=== PATIENT | male | born 2005 | race Caucasian/White ===

== ENCOUNTER 2024-08-24 21:56 | Emergency (ER) | payer BC, SELFPAY ==
--- NOTE | ~2024-08-24 | CT_ITS ---
CLINICAL HISTORY: RLQ, RUQ tenderness R O appendicitis, biliary dise CT abdomen and pelvis with contrast Comparison: None Findings: The lung bases are clear. Moderate bilateral gynecomastia. Unremarkable gallbladder and solid organs. No urolithiasis. No bowel obstruction, pneumoperitoneum, or pneumatosis. Large amount of stool throughout the colon rectum. Mild rectal wall thickening. Normal appendix. Urinary bladder is underdistended. No acute fracture. IMPRESSION: Large amount of stool throughout the colon and rectum with mild rectal wall thickening concerning for stercoral colitis. Normal appendix and gallbladder. This document has been electronically signed by: Jd Mayes MD on 08/25/2024 01:30:21
[2024-08-24 22:02] VITALS: BP 129/91; PULSE 86; RESP 18; TEMP 36.8; O2SAT 98; BMI 28.0
[2024-08-24 22:28] LABS: MANUAL DIFF FLAG NO
[2024-08-24 22:30] LABS: Basophils Percent Auto 0.5 % (0-2); Eosinophils Absolute Auto 0.6 X10*3/uL (0.0-0.4); Eosinophils Percent Auto 6.9 % (0-4); Hematocrit 38.3 % (42.0-52.0); Hemoglobin 13.2 g/dl (14.0-18.0); Imm Gran Abs Auto 0.01 X10*3/uL (0.00-0.03); Imm Gran Pct Auto 0.1 % (0.0-0.4); Lymphocytes Absolute Auto 2.6 X10*3/uL (1.2-4.9); Lymphocytes Percent Auto 33.2 % (20-40); Mean Corpuscular HGB Conc 34.5 g/dl (31.0-36.0); Mean Corpuscular Hemoglobin 30.5 pg (27.0-33.0); Mean Corpuscular Volume 88.5 fL (80.0-98.0); Mean Platelet Volume 9.2 fL (9.4-12.4); Monocytes Absolute Auto 0.8 X10*3/uL (0.1-1.2); Monocytes Percent Auto 9.6 % (2-11); Neutrophils Absolute Auto 3.9 x10*3/uL (2.0-8.3); Neutrophils Percent Auto 49.7 % (45-73); Platelet Count 322 X10*3/uL (160-400); Red Blood Count 4.33 X10*6/uL (4.60-5.80); Red Cell Distribution Width 12.2 % (11.0-16.0); White Blood Count 7.9 X10*3/uL (4.8-10.8)
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
[2024-08-24 22:44] LABS: Alanine Aminotransferase 19 U/L (0-40); Albumin Level 4.5 g/dL (3.5-5.0); Alkaline Phosphatase 69 U/L (39-117); Anion Gap 14 (12-20); Aspartate Amino Transferase 22 U/L (5-37); Bilirubin Total 0.2 mg/dL (0.0-1.0); Blood Urea Nitrogen 14 mg/dL (9-16); Calcium 9.3 mg/dL (8.4-10.2); Carbon Dioxide 25 mmol/L (22-29); Chloride 108 mmol/L (96-108); Creatinine Clr Calc Pharmacy 183.8; Estimated Glomerular Filt Rate > 60; Glucose Random 108 mg/dL (60-115); Lipase 9 U/L (8-78); Sodium 143 mmol/L (135-145); Total Protein 7.2 g/dL (6.5-8.0)
[2024-08-24 23:06] LABS: Influenza A PCR NEGATIVE (Negative); Influenza B PCR NEGATIVE (Negative); Resp Syncy Virus RNA Qual PCR NEGATIVE (Negative); SARS COV2 PCR INHOUSE NEGATIVE (Negative)
--- NOTE | 2024-08-24 23:28 | ED.ABDPAIN ---
HPI - Abdominal Pain General Chief Complaint: Abdominal Pain Stated Complaint: stomach pain Time Seen by Provider: 08/24/24 23:04 Source: patient and family (Mother) Mode of arrival: ambulatory Limitations: no limitations History of Present Illness ED Provider: Dr. Abdirahman Shea HPI narrative: The patient uses the pronouns ?they? and ?them?. 18-year-old patient who presents emergency department for evaluation of stomach pain that came on suddenly at 20:30 hours, has been constant since onset, with waxing and waning intensity with maximum pain being 7/10 at its worse. Patient has associated nausea with no vomiting. The patient states that 2 days prior, they had a sore throat but this has not resolved. The patient denied fever, chills, rhinorrhea, cough, chest pain, diarrhea. The patient denied frequency, urgency or dysuria. According to the patient's mother, they have had chronic constipation since . The patient does not know when they last move your bowels but states that this pain that they are experiencing is different then their constipation pain. Patient was had no abdominal surgeries in the past. The patient is on estradiol and spironolactone. Related Data Allergies Allergy/AdvReac Type Severity Reaction Status Date / Time No Known Allergies Allergy Verified 08/24/24 22:02 Review of Systems Review of Systems Yes all other systems are reviewed and are negative [facility] Past Medical History [facility] Narrative: Social history: The patient denies tobacco and alcohol use. Patient was smokes marijuana occasionally. Social History Social History Alcohol intake: never Smoked in Last 30 Days: No Use of substances other than those prescribed or required for medical reasons: No Any prior treatment program specific to substance use: No Advance Directives: No Advance Directives Information Provided: No Do you have a plan to hurt others: No Plan Physical Exam ED Vital Signs: Vital Signs - 24 hr 08/24/24 22:02 08/25/24 00:00 08/25/24 01:39 Temperature 98.2 F 98.4 F 98.4 F Pulse Rate 86 84 84 Respiratory Rate 18 16 16 Blood Pressure 129/91 H 117/79 117/79 Pulse Oximetry 98 95 Oxygen Delivery Method Room Air Room Air BMI result Body Mass Index 28.0 Vital signs revealed an elevated blood pressure of 129/91 Exam: General: Awake, alert in no distress Head: Normocephalic, atraumatic EENT: PERRL, Lids normal, sclera normal, conjunctiva normal, nose normal , ears normal, throat without erythema or exudates Neck: Supple, no adenopathy Lung: breath sounds symmetric, no wheezing, rales or rhonchi Chest: symmetric movement, nontender Heart: regular rate and rhythm, normal S1, S2 no murmurs or rubs Abdomen: soft, moderate right upper quadrant tenderness with a negative Patrick sign, moderate to severe right lower quadrant tenderness, no rebound, no voluntary or involuntary guarding normoactive bowel sounds Back: no vertebral tenderness, moderate bilateral CVA tenderness Extremities: no deformities, moves all extremities symmetrically Neuro: Awake, alert, oriented, normal speech, cranial nerves intact, moves all extremities symmetrically Psych: Pleasant, cooperative Medical Decision Making Medical Decision Making MDM Narrative: 18-year-old patient who presents emergency department for evaluation of stomach pain that came on suddenly at 20:30 hours, has been constant since onset, with waxing and waning intensity with maximum pain being 7/10 at its worse. Patient has associated nausea with no vomiting. The patient states that 2 days prior, they had a sore throat but this has not resolved. The patient denied fever, chills, rhinorrhea, cough, chest pain, diarrhea. The patient denied frequency, urgency or dysuria. Vital signs revealed an elevated blood pressure. Abdominal exam revealed right upper and right lower quadrant tenderness. Differential diagnosis: ?Includes but is not limited to gastritis, pancreatitis, diverticulitis, biliary colic, appendicitis, anemia, electrolyte abnormalities Course: 23:38 My interpretation patient's laboratory evaluation as follows: CBC was normal. CMP was normal. Lipase was normal. COVID-19, RSV and influenza tests were negative. Given the patient's presentation abdominal exam I am concerned that the patient may have appendicitis versus biliary disease, therefore I ordered a CT scan of the abdomen pelvis with IV contrast. Patient was treated with normal saline IV x1 L, Zofran 4 mg IV and Toradol 15 mg IV 01:[address] scan abdomen pelvis IV contrast revealed a normal-appearing appendix but the patient does have a large stool burden with mild rectal wall thickening concerning for stercoral colitis. I did do a rectal exam on the patient and they are not impacted. Patient was given a soapsuds enema. Patient was discharged home and advised to restart there MiraLax once a day. Patient was also advised to take Colace 100 mg twice a day. If the patient does not have a bowel movement in 4 days they were advised to take extra-strength Senokot 2 tablets twice a day for 4 days. If the patient still is constipated they were advised to use a Fleet's enema. Patient was given printed and verbal instructions and discharged home. Admission/Observation Consideration of admission/observation: Escalation of care including admission/observation considered (Yes) Lab Data MDM Lab Attestation statement: I reviewed the patient's lab results. 08/24/24 22:21 08/24/24 22:21 Labs: Lab Results 08/24/24 08/25/24 Range/Units 22:21 01:42 WBC 7.9 (4.8-10.8) X10*3/uL RBC 4.33 L (4.60-5.80) X10*6/uL Hgb 13.2 L (14.0-18.0) g/dl Hct 38.3 L (42.0-52.0) % MCV 88.5 (80.0-98.0) fL MCH 30.5 (27.0-33.0) pg MCHC 34.5 (31.0-36.0) g/dl RDW 12.2 (11.0-16.0) % Plt Count 322 (160-400) X10*3/uL MPV 9.2 L (9.4-12.4) fL Immature Gran % (Auto) 0.1 (0.0-0.4) % Neut % (Auto) 49.7 (45-73) % Lymph % (Auto) 33.2 (20-40) % [place] % (Auto) 9.6 (2-11) % Eos % (Auto) 6.9 H (0-4) % Baso % (Auto) 0.5 (0-2) % Lymph # (Auto) 2.6 (1.2-4.9) X10*3/uL [place] # (Auto) 0.8 (0.1-1.2) X10*3/uL Eos # (Auto) 0.6 H (0.0-0.4) X10*3/uL Baso # (Auto) 0.0 (0.0-0.2) X10*3/uL Abs Immat Gran (auto) 0.01 (0.00-0.03) X10*3/uL Absolute Neuts (auto) 3.9 (2.0-8.3) x10*3/uL Absolute Nucleated RBC 0.000 (0.0-0.012) X10*3/uL Nucleated RBC % (auto) 0.0 (0.0-0.2) /100WBC Sodium 143 (135-145) mmol/L Potassium 4.0 (3.3-5.1) mmol/L Chloride 108 (96-108) mmol/L Carbon Dioxide 25 (22-29) mmol/L Anion Gap 14 (12-20) BUN 14 (9-16) mg/dL Creatinine 0.74 (0.5-1.4) mg/dL Estim Creat Clear Calc 183.8 Estimated GFR > 60 Random Glucose 108 (60-115) mg/dL Calcium 9.3 (8.4-10.2) mg/dL Total Bilirubin 0.2 (0.0-1.0) mg/dL AST 22 (5-37) U/L ALT 19 (0-40) U/L Alkaline Phosphatase 69 (39-117) U/L Total Protein 7.2 (6.5-8.0) g/dL Albumin 4.5 (3.5-5.0) g/dL Lipase 9 (8-78) U/L Beta HCG, Quant < 2 mIU/mL Urine Color Yellow Urine Appearance Clear Urine pH 7.0 (5.0-9.0) Ur Specific [place] >= 1.030 H (1.005-1.025) Urine Protein Negative (Neg-Trace) mg/dL Urine Glucose (UA) Negative (Negative) mg/dL Urine Ketones Negative (Negative) mg/dL Urine Blood Negative (Negative) Urine Nitrite Negative (Negative) Ur Leukocyte Esterase Negative (Negative) Influenza Type A (PCR) NEGATIVE (Negative) Influenza Type B (PCR) NEGATIVE (Negative) RSV RNA Qual (PCR) NEGATIVE (Negative) SARS-CoV-2 RNA (RT-PCR) NEGATIVE (Negative) Radiology Impression Discussion of test interpretation with radiology: I have reviewed the radiologist's reading. Radiologist Impression: CT abdomen and pelvis with contrast Comparison: None Findings: The lung bases are clear. Moderate bilateral gynecomastia. Unremarkable gallbladder and solid organs. No urolithiasis. No bowel obstruction, pneumoperitoneum, or pneumatosis. Large amount of stool throughout the colon rectum. Mild rectal wall thickening. Normal appendix. Urinary bladder is underdistended. No acute fracture. IMPRESSION: Large amount of stool throughout the colon and rectum with mild rectal wall thickening concerning for stercoral colitis. Normal appendix and gallbladder. This document has been electronically signed by: Jd Mayes MD on 08/25/2024 01:30:21 Independent Historian Clinical information obtained from an independent historian. History obtained from or confirmed by: Parent (Mother) Medications Administered Discontinued Medications Generic Name Dose Route Start Last Admin Trade Name Freq PRN Reason Stop Dose Admin Sodium Chloride 1,000 mls @ 999 mls/hr 08/24/24 23:26 08/25/24 01:38 Ns IV 08/25/24 00:26 Infused .Q1H1M STA Infusion Iohexol 85 ml 08/25/24 00:07 08/25/24 00:08 Iohexol 350 Mg/Ml 100 Ml Infus..Btl IV 08/25/24 00:08 85 ml ONCE ONE Administration Ketorolac Tromethamine 15 mg 08/24/24 23:26 08/25/24 00:14 Ketorolac Tromethamine 15 Mg/Ml Vial IVPUSH 08/24/24 23:27 15 mg ONCE STA Administration Ondansetron HCl 4 mg 08/24/24 23:26 08/25/24 00:15 Ondansetron Hcl 4 Mg/2 Ml Vial IVPUSH 08/24/24 23:27 4 mg ONCE ONE Administration Discharge Plan Discharge Clinical Impression: Stercoral colitis, Acute constipation Abdominal pain Qualifiers: Abdominal location: periumbilical Qualified Code(s): R10.33 - Periumbilical pain Patient Disposition: Home, Self-Care Instructions: Constipation (ED), High Fiber Diet (ED), Fleet Enema (ED) Additional Instructions: Your blood work was unremarkable. The CT scan of your abdomen pelvis revealed a large amount of stool in your colon with thickening of the colon wall (stercoral colitis). Given this finding, I suspect that severe constipation is the cause of your abdominal pain. You were given a soapsuds enema here in the emergency department. Increase the amount of fluid that you drink and increase the fiber in your diet. Restart your MiraLax and take it daily. Take Colace 1 pill twice a day for 1 month. This is a stool softener. If you do not have a good bowel movement in 4 days then take extra-strength Senokot 2 pills twice a day for 4 days. If you do not have a good bowel movement after taking the Senokot then use a Fleet's enema daily for 4 days. Follow-up with your doctor in 2 days. Please return to the emergency department if your symptoms get worse or if you develop any symptoms that are concerning to you. Print Language: Thai
[2024-08-24 23:48] LABS: HCG Quantitative < 2 mIU/mL
[2024-08-25] VITALS: BP 117/79; PULSE 84; RESP 16; TEMP 36.9; O2SAT 95
[2024-08-25] MEDS: iohexoL 350 MG/ML 100 ML INFUS..BTL 85 ML IV (00:08)
[2024-08-25] MEDS: Ketorolac Tromethamine 15 MG/ML VIAL IVPUSH (00:14)
[2024-08-25] MEDS: 0.9 % Sodium Chloride 1,000 ML 999 ML IV (00:14)
[2024-08-25] MEDS: ondansetron HCL 4 MG/2 ML VIAL IVPUSH (00:15)
[2024-08-25 01:39] VITALS: BP 117/79; PULSE 84; RESP 16; TEMP 36.9
[2024-08-25 01:50] LABS: Appearance Urine Clear; Color Urine Yellow; Glucose Urine UA Negative (Negative); Leukocyte Esterase Urine Negative (Negative); Nitrite Urine Negative (Negative); Specific Gravity - Urine >= 1.030 (1.005-1.025); Urine Blood Negative (Negative); Urine Ketones Negative (Negative); Urine Protein Negative (Neg-Trace)
[2024-08-25 02:00] VITALS: BP 115/78; PULSE 72; RESP 16; TEMP 36.7; O2SAT 98
--- NOTE | 2024-08-25 02:21 | PC.NURSE ---
no soaps suds emema in the unit. 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
--- NOTE | 2024-08-25 03:25 | PC.NURSE ---
no results from [facility] at this time. pt resting on their right side.
--- NOTE | 2024-08-25 03:54 | PC.NURSE ---
pt has been laying on his right side and no bm at this time, pt is in th bathroom waiting results.
[2024-08-25 04:11] VITALS: BP 115/78; PULSE 72; RESP 16; TEMP 36.7; O2SAT 98
== END 2024-08-25 04:13 | disposition home or self-care (01) ==
PROVIDERS: Emergency Provider Emergency Medicine Emergency Medical Services; PCP Physician Assistant
DX: K52.89 Other specified noninfective gastroenteritis and colitis (principal); R10.33 Periumbilical pain; R10.11 Right upper quadrant pain; R10.31 Right lower quadrant pain; K59.00 Constipation, unspecified; Z03.818 Encounter for observation for suspected exposure to other biological agents ruled out
CPT/HCPCS: 0241U; 74177; 80053; 81003; 83690; 84702; 85025; 96361; 96374; 96375; 99284; 99285; J1885; J2405; Q9967

== ENCOUNTER → 2024-08-25 | Outpatient (BNV) | payer BC, SELFPAY | PROVIDERS: Emergency Provider Emergency Medicine Emergency Medical Services; PCP Physician Assistant; Visit Provider Radiology Diagnostic Radiology | DX: R10.31 Right lower quadrant pain (principal); R10.11 Right upper quadrant pain; K59.00 Constipation, unspecified | CPT/HCPCS: 74177 ==